=== PATIENT | female | born 1940 | race Caucasian/White ===

== ENCOUNTER 2016-11-17 11:36 | Inpatient (IN) | payer MEDICARE, MEDICAID ==
[2016-11-17] VITALS (8 sets, daily range): BP systolic 69–222; BP diastolic 57–204; BMI 39.4
[2016-11-17 13:08] LABS: BASOPHILS 0.2 % (0-2); EOSINOPHILS 1.1 % (0-7); HEMOGLOBIN 11.6 g/dL (12-16); IMMATURE GRANULOCYTES 0.4 % (0-5); LYMPHOCYTES 14.9 % (15-50); MCH 31.6 pg (26.0-34.0); MEAN PLATELET VOLUME 11.7 fL (7.4-10.4); MONOCYTES 6.7 % (2-11); NEUTROPHILS 76.7 % (40-80); PLATELET COUNT 206 10x3/uL (130-400); RBC 3.67 10x6/uL (4.00-5.40); RDW 12.8 % (11.5-14.5); WBC 11.7 10x3/uL (4.8-10.8)
[2016-11-17 13:29] LABS: INR 0.98 (0.85-1.17); PROTIME 12.9 SECONDS (11.6-15.0)
[2016-11-17 13:53] LABS: ALBUMIN 2.9 g/dL (3.4-5.0); ANION GAP 2.9 mmol/L (8-16); BILIRUBIN - TOTAL 0.18 mg/dL (0.2-1.3); CALCIUM 9.4 mg/dL (8.5-10.1); CREATININE - SERUM 1.4 mg/dL (0.6-1.3); MAGNESIUM - SERUM 2.1 mg/dL (1.8-2.4); POTASSIUM - SERUM 4.9 mmol/L (3.5-5.1); PROTEIN - SERUM 6.2 g/dL (6.4-8.2)
--- NOTE | 2016-11-17 16:00 | NUR ---
PT ARRIVED TO FLOOR WITH ER STAFF
[2016-11-17] MEDS ORDERED: FUROSEMIDE20 MG PO (16:23)
[2016-11-17] MEDS ORDERED: METOLAZONE2.5 MG PO (16:23)
[2016-11-17] MEDS ORDERED: ZOCOR40 MG PO (16:23)
[2016-11-17] MEDS ORDERED: ASCORBIC ACID500 MG PO (16:24)
[2016-11-17] MEDS ORDERED: ECOTRIN325 MG PO (16:24)
[2016-11-17] MEDS ORDERED: CLARITIN 10 MG10 MG PO (16:24)
[2016-11-17] MEDS ORDERED: CALCIUM 600 +1 EAC3 PO (16:25)
[2016-11-17] MEDS ORDERED: PRILOSEC2.5 MG PO (16:27)
[2016-11-17] MEDS ORDERED: K-DUR20 MEQ PO (16:28)
[2016-11-17] MEDS ORDERED: ACETAMINOPHEN325 MG PO (16:28)
[2016-11-17] MEDS ORDERED: MIRALAX17 GM PO (16:28)
[2016-11-17] MEDS ORDERED: ZOFRAN4 MG PO (16:29)
[2016-11-17] MEDS ORDERED: METOPROLOL TART25 MG PO (16:30)
[2016-11-17] MEDS ORDERED: NITROSTAT0.4 MG SL (16:31)
[2016-11-17] MEDS ORDERED: BENADRYL25 MG PO (16:31)
[2016-11-17] MEDS ORDERED: CELEXA10 MG PO (16:32)
--- NOTE | 2016-11-17 18:21 | NUR ---
PT LEFT FLOOR TO OR
--- NOTE | 2016-11-17 20:15 | NUR ---
ARRIVED TO ICU; PT VENTED. PIV TO LEFT AC; PATENT. SLIGHT SATURATION NOTED TO LEFT LEG DRESSING. PT AGGITATED AND RESTLESS. WILL CONTINUE TO MONITOR.
--- NOTE | 2016-11-17 20:50 | NUR ---
SPOKE WITH DR. EPSTEIN; ORDERS RECIEVED. SEE ORDERS FOR DETAILS.
--- NOTE | 2016-11-17 21:15 | NUR ---
PT ARRIVES TO ICU; PT VENTED. AWAKE. AGITATED.
--- NOTE | 2016-11-17 21:30 | NUR ---
ASSESSMENT COMPLETE. S1S2. RR MECHANICAL VENT. RHONCI NOTED BILATERALLY IN UPPER LOBES; DIMINISHED BILATERALLY IN MID AND LOWER LOBES. REDDENED AREA NOTED TO BUTTOCKS; BACK; UNDER ABD SKIN FOLDS. DRIED FLAKEY SKIN NOTED TO LEFT ABD FOLD; PT ATTEMPTING TO SCRATCH AREA. IN RESTRAINTS. RISK FOR SELF EXTUBATION. EDEMA NOTED TO EXTREMITIES X4. [place] IN LEFT TIBIA; DRESSING APPLIED. SATURATED SLIGHTLY WITH BLOOD. WILL CONTINUE TO MONITOR SITE. RADIAL AND PEDAL PULSES WEAK; EDEMA NOTED.
--- NOTE | 2016-11-17 22:00 | NUR ---
LAY CATH PLACED. NGT PLACED; CONNECTED TO LIS.
--- NOTE | 2016-11-17 23:30 | NUR ---
REASSESSMENT COMPLETE. NO ACUTE CHANGES. LAY IN PLACE. PT SEDATED ON VENT. WILL CONTINUE POC
--- NOTE | 2016-11-17 23:30 | NUR ---
SPOKE WITH DR. LAMAR. UPDATED ON PT CONDITION. WILL CONTINUE TO MONITOR AND FOLLOW POC
--- NOTE | 2016-11-17 23:35 | NUR ---
PT LEFT LEG ELEVATED WITH ICE APPLIED PER ORDERS.
[2016-11-18] VITALS (24 sets, daily range): BP systolic 77–129; BP diastolic 38–93; BMI 40.2
--- NOTE | 2016-11-18 02:30 | NUR ---
PT PLACED IN RESTRAINTS. RISK FOR SELF EXTUBATION.
--- NOTE | 2016-11-18 03:30 | NUR ---
REASSESSMENT COMPLETE. NO ACUTE CHANGES FROM PREVIOUS ASSESSMENT. VSS. NO DISTRESS NOTED. WILL CONTINUE POC
[2016-11-18 04:13] LABS: BASOPHILS 0.1 % (0-2); EOSINOPHILS 0 % (0-7); HEMATOCRIT 38.9 % (36.0-48.0); HEMOGLOBIN 11.5 g/dL (12-16); IMMATURE GRANULOCYTES 0.4 % (0-5); LYMPHOCYTES 9.8 % (15-50); MCH 31.5 pg (26.0-34.0); MCHC 29.6 g/dL (31.0-37.0); MCV 106.6 fL (80.0-100.0); MEAN PLATELET VOLUME 11.8 fL (7.4-10.4); NEUTROPHILS 81.7 % (40-80); PLATELET COUNT 207 10x3/uL (130-400); RBC 3.65 10x6/uL (4.00-5.40); RDW 12.8 % (11.5-14.5); WBC 11.2 10x3/uL (4.8-10.8)
[2016-11-18 04:23] LABS: ANION GAP 7.3 mmol/L (8-16); CALCIUM 8.9 mg/dL (8.5-10.1); CARBON DIOXIDE 37.7 mmol/L (21.0-32.0)
[2016-11-18 04:28] LABS: CREATININE - SERUM 1.8 mg/dL (0.6-1.3)
--- NOTE | 2016-11-18 13:02 | NUR ---
1100- SPOKE TO PTS SAYDA ROMERO AND DISCUSSED POC. DISCUSSED DNR STATUS SEEN ON NG HOME SHEET. THAD STATES THAT PT IS AN DNR AND THAT IS THE PT'S WISHES.
--- NOTE | 2016-11-18 13:10 | NUR ---
DR EPSTEIN ROUNDING WITH RT AND VENT SETTING CHANGES MADE. DIPROVAN TITRATING DOWN AND PT NODS HEAD YES TO PAIN. MS GIVEN.
--- NOTE | 2016-11-18 17:55 | NUR ---
1620- PT EXTUBATED TO 4LNC. VSS. SPO2 93%. FOLLOWING COMMAND.
--- NOTE | 2016-11-18 19:15 | NUR ---
ASSESSMENT COMPLETE. PT EXTUBATED EARLIER TODAY. RR SHALLOW; UNLABORED CRACKELS AND WHEEZE NOTED BILATERALLY IN UPPER AND MID LOBES; DIMINISHED BILATERALLY IN LOWER LOBES. VERBAL COMMUNICATION EASILY UNDERSTOOD. PT ON 2L VIA NC SATS 100%. PT REQUESTED TO LEAVE NC ON FOR COMFORT PURPOSES. RADIAL AND PEDAL PULSES WEAK; PALP. LEFT LEG [place]IE IN TIBIA; DRESSING APPLIED; SATURATION NOTED. ICE PACK APPLIED; FOOT ELEVATED.
--- NOTE | 2016-11-18 21:30 | NUR ---
NO VISITORS DURING VISITATION.
--- NOTE | 2016-11-18 23:10 | NUR ---
REASSESSMENT COMPLETE. NO ACUTE CHANGES FROM PREVIOUS ASSESSMENT. VSS. NO DISTRESS NOTED. WILL CONTINUE TO MONITOR.
[2016-11-19] VITALS (20 sets, daily range): BP systolic 88–128; BP diastolic 41–94
--- NOTE | 2016-11-19 01:46 | NUR ---
PT RESTING; EYES CLOSED. VSS. NO DISTRESS NOTED. CALL LIGHT IN REACH. IN VIEW FROM NURSES STATION. WILL CONTINUE TO MONITOR.
--- NOTE | 2016-11-19 03:00 | NUR ---
REASSESSMENT COMPLETE. NO ACUTE CHANGES FROM PREVIOUS ASSESSMENT. VSS. NO DISTRESS NOTED. WILL CONTINUE TO MONITOR.
[2016-11-19 05:03] LABS: BASOPHILS 0.2 % (0-2); EOSINOPHILS 0.4 % (0-7); HEMATOCRIT 34.3 % (36.0-48.0); HEMOGLOBIN 10.1 g/dL (12-16); IMMATURE GRANULOCYTES 0.4 % (0-5); LYMPHOCYTES 13.9 % (15-50); MCH 31.8 pg (26.0-34.0); MCHC 29.4 g/dL (31.0-37.0); MCV 107.9 fL (80.0-100.0); MEAN PLATELET VOLUME 11.8 fL (7.4-10.4); NEUTROPHILS 75.1 % (40-80); PLATELET COUNT 209 10x3/uL (130-400); RBC 3.18 10x6/uL (4.00-5.40); RDW 13.5 % (11.5-14.5)
[2016-11-19 05:05] LABS: WBC 8.3 10x3/uL (4.8-10.8)
[2016-11-19 05:11] LABS: CALCIUM 8.4 mg/dL (8.5-10.1); CARBON DIOXIDE 38.9 mmol/L (21.0-32.0); CREATININE - SERUM 1.7 mg/dL (0.6-1.3); MAGNESIUM - SERUM 1.6 mg/dL (1.8-2.4); PHOSPHOROUS 4.9 mg/dL (2.5-4.9)
[2016-11-19 05:21] LABS: POTASSIUM - SERUM 2.9 mmol/L (3.5-5.1)
--- NOTE | 2016-11-19 07:00 | NUR ---
REPORT RECEIVED FROM OFF GOING NURSE. PT VSS. SOFT CAST TO LLE. ABLE TO WIGGLE TOES AND STATES SHE CAN FEEL THEM. NO C/O NUMBNESS OR TINGILING. LLE ELEVATED AND HAS ICEPACKS ON. BREATHING NORMAL AND UNLABORED. CALL LIGHT IN REACH. WILL CONT POC.
--- NOTE | 2016-11-19 13:03 | NUR ---
FEED THIN LIQUIDS TO PT. NO DYSPAGIA NOTED. TOLERATED WELL. VSS. WILL CONT POC
[2016-11-19 15:19] LABS: APPEARANCE CLEAR (CLEAR); BILIRUBIN NEGATIVE (NEGATIVE); COLOR STRAW (YELLOW); GLUCOSE NEGATIVE (NEGATIVE); KETONE NEGATIVE (NEGATIVE); NITRITE NEGATIVE (NEGATIVE); PROTEIN NEGATIVE (NEGATIVE); UROBILINOGEN NORMAL (NORMAL)
--- NOTE | 2016-11-19 16:14 | OP ---
PATIENT NAME: AMANDA CARLTON MEDICAL RECORD: [id number] :42 LOCATION:[facility] D.[id number] ADMISSION DATE:11/18/16 SURGEON: EM LAMAR DO DATE OF OPERATION: 11/17/2016 PROCEDURE PERFORMED: Left ankle fibula intramedullary nail with syndesmotic fixation. PREOPERATIVE DIAGNOSIS: Left ankle fracture with lateral subluxation and syndesmotic disruption. POSTOPERATIVE DIAGNOSIS: Left ankle fracture with lateral subluxation and syndesmotic disruption. INDICATIONS: Ms. Carlton is a 76-year-old female who does stay in the group home and does not bear weight, often; however, today she did slip and fall and twisted her left ankle and sustained a fracture subluxation as described. She was seen in the ER and was consulted. The patient was admitted under medicine and made n.p.o. earlier today. She is scheduled to start at 1700. The patient was consented and questions were asked. Risks and benefits were discussed. SURGEON: Em Lamar DO DESCRIPTION OF PROCEDURE: The patient was taken to the operative suite, placed in supine position, and given general anesthetic. Tourniquet was placed above the knee. Hip was bumped and the lower extremity was elevated on the left side. Once this was done, a timeout was performed. The patient was given 2 grams Ancef preoperatively and everyone was in agreement, this was the correct patient and correct side and site. The left lower extremity was prepped and draped in sterile fashion. The left lower extremity was exsanguinated with a 4-inch Ronen wrap and the tourniquet was inflated to 350 mmHg. Once this was done, an incision was made just distal to the fibula and a starting pin was inserted into the fibula and then a starting reamer was used. Once this was done, knock out hand was used to reduce the fracture and ream the fibula. Then, the nail was placed up the fibula. Once this was done and seen to be in good position, the ADP screws were marked and a single incision was made for both the screws and the screws were placed through the guide jig on the Acumed nail. It was 3 mm in diameter and 180 mm in length. Once this was placed, ADP screws were placed. The lateral screw holes through the jig were marked with a cannula and then an incision was made for both of them. A K-wire was then ran through the nail and the tibia, as well as the fibula on both screws and the 3.7 drill bit was used over the K-wires through both the fibula into the nail and out the medial side of the tibia in preparation for the TightRope. This was done on both holes. The TightRope was then placed across the drilled hole and button was flipped on the medial cortex of the tibia. This was first done distally and then proximally for both holes and cinched down. Once this was done, x-ray was taken confirming good position. The medial malleolar piece had been reduced and due to the poor bone quality and patient's lack of activity, we decided not to put cannulated screws into the medial malleolar piece. The 3 incision sites were irrigated copiously. Tourniquet was let down and the sites were closed with 2-0 Vicryl and 4-0 nylon on the skin. A 2-0 Vicryl was used in an inverted interrupted fashion and a 4-0 Vicryl was used in a horizontal mattress pattern in each of the 3 incisions. The patient, however, did not tolerate being extubated and was transferred to the ICU. Tourniquet was let down at 53 minutes and the patient was taken to the ICU. OPERATIVE REPORT [id number] AMANDA CARLTON:[id number] Voice Confirmation ID: [id number] DOCUMENT ID: [id number] EM LAMAR DO at 1614 CC: [id number] DICTATION DATE: 11/17/162017 SCUTCHER TENDER: 11/17/162127 ADM IN [facility] [address] [place] [address]
--- NOTE | 2016-11-19 17:45 | NUR ---
DR LAMAR AT BED SIDE AND REWRAPPED LLE. INCISION WELL APPROXIMATED, BRUSING NOTED WITH NO S/SX OF INFECTION. NEW WRAP TO LLE AND ICE APPLIED AND EXTRIMITY ELEVATED ON PILL. DENIES PAIN AT THIS TIME. WILL CONT POC.
--- NOTE | 2016-11-19 18:37 | NUR ---
K LVL 3.1. K REPLACED PER ELECTROLYTE PROTOCOL.
--- NOTE | 2016-11-19 19:00 | NUR ---
ASSESSMENT COMPLETE, PT IS ALERT AND ORIENTED, ON 2L NC WITH 97% O2 SAT. LUNGS CLEAR IN B/L UPPER LOBES, DIMINISHED IN B/L LOWER LOBES, AFIB ON MONITOR, PATENT LEFT A/C PIC...SEE IV FLOW SHEET...ABODMEN IS SOFT AND ROUND WITH ACTIVE BS, PATENT F/C WITH C/Y UOP, EDEMA NOTED IN ALL EXTREMETIES, DRSG TO LEFT ANKLE IS CDI, ALL PPP, VSS, CALL LIGHT IN REACH
[2016-11-20 04:00] VITALS: BP 132/61
--- NOTE | 2016-11-20 04:30 | NUR ---
PATIENT REFUSED ABG.
[2016-11-20 05:35] LABS: BASOPHILS 0.3 % (0-2); EOSINOPHILS 2.7 % (0-7); HEMATOCRIT 29.8 % (36.0-48.0); HEMOGLOBIN 8.9 g/dL (12-16); IMMATURE GRANULOCYTES 0.3 % (0-5); LYMPHOCYTES 16.3 % (15-50); MCH 31.6 pg (26.0-34.0); MCHC 29.9 g/dL (31.0-37.0); MEAN PLATELET VOLUME 11.9 fL (7.4-10.4); MONOCYTES 8.6 % (2-11); NEUTROPHILS 71.8 % (40-80); PLATELET COUNT 187 10x3/uL (130-400); RBC 2.82 10x6/uL (4.00-5.40); RDW 13.5 % (11.5-14.5); WBC 6.7 10x3/uL (4.8-10.8)
[2016-11-20 05:38] LABS: MCV 105.7 fL (80.0-100.0)
[2016-11-20 05:40] LABS: ANION GAP 6.9 mmol/L (8-16); CALCIUM 8.1 mg/dL (8.5-10.1); CARBON DIOXIDE 38.1 mmol/L (21.0-32.0); CREATININE - SERUM 1.5 mg/dL (0.6-1.3)
[2016-11-20 05:50] LABS: PHOSPHOROUS 2.2 mg/dL (2.5-4.9)
--- NOTE | 2016-11-20 07:45 | NUR ---
PT AOX4 RESP EVEN AND NONLABORED PT DENIES NEEDS AT THIS TIME IV TO RIGHT FOREARM PATENT AND INTACT AT THIS TIME SRX2 BED AT LOWEST SETTING CALL LIGHT WITHIN REACH WILL CONTINUE TO MONITOR
[2016-11-20 09:01] VITALS: BP 110/43
[2016-11-20 09:30] VITALS: BP 114/74
[2016-11-20 12:22] VITALS: BP 118/59
--- NOTE | 2016-11-20 13:57 | NUR ---
Patient Name: AMANDA CARLTON Admission Status: ER Accout number: [id number] Admission Date: 11-18-2016 : 1940 Admission Diagnosis:UNSP FRACTURE OF SHAFT OF LEFT FIBULA, INIT FOR CLOS FX Attending: RON, Current LOS: 2 Anticipated DC Date: 11-21-2016 Planned Disposition: Inpatient Rehab Primary Insurance: MEDICARE A & B Discharge Planning Comments: CM MET WITH PATIENT AND FAMILY REGARDING D/C NEEDS AND PLANS. PATIENT STATED SHE LIVES AT [facility] AND USES A WHEELCHAIR AT THE FACILITY. PATIENT STATED SHE DOES NOT WALK BUT USES A WHEELCHAIR DAILY. PATIENT ALSO USES CONTINUOUS OXYGEN. PATIENTS PCP IS DR. JUAN KC AND PHARMACY IS IN HOUSE AT FACILITY. CM WILL CONTINUE TO FOLLOW PATIENT WITH D/C NEEDS AND PLANS. PCP DR. JUAN KC IN HOUSE PHARMACY THAD (SISTER) [phone] Esol Instructor: Saadia Bolton Is the patient Alert and Oriented? Yes 0 * How many steps to enter\exit or inside your home? 0 0 * PCP DR. JUAN KC 0 * Pharmacy IN HOUSE 0 * Preadmission Environment Final Cleaner Assisted 0 * [facility] * ADLs Partial Dependent 0 * Partial ADLs (Assistance needed) Ambulation Bathing Dressing Medication Management Toileting Transfers 0 * Equipment Oxygen Wheelchair 0 * Other Equipment FACILITY PROVIDES 0 * List name and contact numbers for known caregivers / representatives who currently or will assist patient after discharge: THAD (SISTER) [phone] 0 * Community resources currently utilized None 0 * Additional services required to return to the preadmission environment? Yes 0 * Can the patient safely return to the preadmission environment? Yes 0 * Has this patient been hospitalized within the prior 30 days at any hospital? No 0 Grand Total: 0
--- NOTE | 2016-11-20 15:30 | NUR ---
REHAB PRESCREENING Rehab referral received and chart reviewed. There is no PT evaluation recorded. She is currently non weight bearing on LLE. Rehab will continue to follow this patient for evaluations in order to assess admission criteria. Thank you for this referral! Johana Angulo, MANAGER OF CHANGE Rehab Radiology Transcriptionist
[2016-11-20 17:13] VITALS: BP 116/48
[2016-11-20 20:00] VITALS: BP 132/78
[2016-11-21] VITALS: BP 115/46
--- NOTE | 2016-11-21 | NUR ---
WITH DYNAMICS AX DEVELOPER, GAVE A BED BATH, CHANGED LINENS. TURNED PATIENT TO HER RIGHT SIDE. PATIENT HAS A RASH UNDER EACH BREAST THAT SHE IS SCRATCHING AND MAKING IT BLEED, THERE IS OPEN SCRATCH MCNAM[place], ENCOURAGED PATIENT NOT TO SCRATCH, CLEANED AND DRIED, PUT PILLOW CASES UNDER HER BREAST TO KEEP IT DRY AND PROVIDE RELIEF. PATIENT HAS A CRUSTY RASH UNDER HER LOWER ABDOMINAL SKIN FOLDS. PERINEAL AREA HAS A RASH THAT IS EXCORIATED AND CRUSTING SKIN, FOUL ODOR PRESENT, CLEANED AND DRIED. PATIENT DENIES NEEDS AT THIS TIME. BED IN LOWEST POSITION, CALL LIGHT IN REACH. BED RAILS UP X'S 2.
[2016-11-21 04:00] VITALS: BP 122/68
--- NOTE | 2016-11-21 04:20 | NUR ---
PUT PATIENT ON BIPAP CO2 80
[2016-11-21 05:44] LABS: BASOPHILS 0.2 % (0-2); HEMATOCRIT 30.7 % (36.0-48.0); HEMOGLOBIN 9.3 g/dL (12-16); IMMATURE GRANULOCYTES 0.3 % (0-5); LYMPHOCYTES 16.8 % (15-50); MCH 32.1 pg (26.0-34.0); MCHC 30.3 g/dL (31.0-37.0); MCV 105.9 fL (80.0-100.0); MEAN PLATELET VOLUME 11.9 fL (7.4-10.4); MONOCYTES 10.6 % (2-11); NEUTROPHILS 69.1 % (40-80); PLATELET COUNT 206 10x3/uL (130-400); RDW 13.3 % (11.5-14.5); WBC 6.3 10x3/uL (4.8-10.8)
[2016-11-21 05:55] LABS: ANION GAP 3.8 mmol/L (8-16); CALCIUM 8.3 mg/dL (8.5-10.1); CARBON DIOXIDE 36.8 mmol/L (21.0-32.0); CREATININE - SERUM 1.3 mg/dL (0.6-1.3); MAGNESIUM - SERUM 1.9 mg/dL (1.8-2.4); POTASSIUM - SERUM 3.6 mmol/L (3.5-5.1)
[2016-11-21 05:57] LABS: PHOSPHOROUS 2.8 mg/dL (2.5-4.9)
--- NOTE | 2016-11-21 07:45 | NUR ---
PT ASSESSMENT COMPLETE AT THIS IMTE ON WALKING ROUNGS PT NOTED TO HAVE O2 NC AT 2LPM PT ALSO HAS BIPAP IN ROOM FOR USE AT HS. PT WITH NO DISTRESS NOTED LAY PATENT TO CLEAR YELLOW URINE PER GRAVITY FLOW. ALL ALDS PER STAFF TOTAL CARE.
[2016-11-21 08:48] VITALS: BP 123/46
[2016-11-21 09:30] VITALS: BP 114/74
--- NOTE | 2016-11-21 11:49 | NUR ---
Rehab Note- plans to discharge back to [facility] today which is where she admitted from. Physical therapy stated that the patient is wc bound & non-ambbulatory prior to this hospitalization. Thank you for this referral! Lizeth Redmond RN Clinical Liaison, [facility] Rehab
[2016-11-21 12:26] VITALS: BP 96/56
[2016-11-21] MEDS ORDERED: TYLENOL W/CODEI1 TAB PO (12:46)
[2016-11-21] MEDS ORDERED: ULTRAM50 MG PO (12:46)
--- NOTE | 2016-11-21 13:16 | NUR ---
PT REMAINS IN BED WITH NO DISTRESS NOTED PT HAS DISCHARGE PLAN TO RETURN TO [facility] THIS AFTERNOON PER FACILTIY VAN
--- NOTE | 2016-11-21 13:27 | NUR ---
CM REASSESSMENT NOTE; PATIENT IS DISCHARGING TO [facility] TODAY BY FACILITY VAN. OXYGEN WILL BE BROUGHT BY FACILITY. IMM SERVED. FAMILY NOTIFIED.
--- NOTE | 2016-11-21 13:33 | NUR ---
PT AOX4 RESP EVEN AND NONLABORED PT DENIES NEEDS AT THIS TIME IV TO LEFT FOREARM PATENT AND INTACT AT THIS TIME SRX2 BED AT LOWEST SETTING CALL LIGHT WITHIN REACH WILL CONTINUE TO MONITOR
--- NOTE | 2016-11-21 14:14 | NUR ---
IV DISCONTINUED WITH CATHETER INTACT AT THIS TIME PT GIVEN DISCHARGE INSTRUCTIONS AT THIS TIME
--- NOTE | 2016-11-21 14:37 | NUR ---
[facility] AT THIS TIME
--- NOTE | 2016-11-24 09:58 | NUR ---
LATE ENTRY: PATIENT D/C TO A SKILLED BED
== END 2016-11-21 14:38 | DRG 492 ==
LOC: OBSVTIME → D.OPS 11:36 → D.ER 11:36 → D.MS 12:33 → D.ER 12:33 → OBSVTIME 12:33 → D.SDCHOLD 12:33 → D.OPS 12:58 → D.MS 15:58 → D.SDCHOLD 15:58 → EDSTATUS 17:00 → D.ICU 21:10 → D.MS 21:10 → D.ICU 21:10 → D.SDCHOLD 11-18 01:34 → D.ICU 11-18 01:35 → D.MS 11-18 01:35 → D.ICU 11-19 16:27 → D.MS 11-19 21:10 → D.SDCHOLD 11-19 21:10 → D.MS 11-19 21:16 → D.ICU 11-19 21:16 → D.MS 11-21 14:38 → D.ICU 11-25 17:47
PROVIDERS: Emergency Medicine; Orthopaedic Surgery; ADMIT Family Medicine
PROC: 0QSK06Z Reposition Left Fibula with Intramedullary Internal Fixation Device, Open Approach (ICD-10-PCS; principal; 2016-11-17 17:00)
DX: S82.402A Unspecified fracture of shaft of left fibula, initial encounter for closed fracture (principal); J96.22 Acute and chronic respiratory failure with hypercapnia; J96.12 Chronic respiratory failure with hypercapnia; N17.9 Acute kidney failure, unspecified; I13.0 Hypertensive heart and chronic kidney disease with heart failure and stage 1 through stage 4 chronic kidney disease, or unspecified chronic kidney disease; D62 Acute posthemorrhagic anemia; J98.11 Atelectasis; W19.XXXA Unspecified fall, initial encounter; E78.5 Hyperlipidemia, unspecified; I50.9 Heart failure, unspecified; Z66 Do not resuscitate; E87.6 Hypokalemia; E86.0 Dehydration; J98.6 Disorders of diaphragm; K21.9 Gastro-esophageal reflux disease without esophagitis; N18.9 Chronic kidney disease, unspecified